=== PATIENT | female | born 1990 | race Caucasian/White ===

== ENCOUNTER 2017-03-29 12:51 | Emergency (ER) | payer SELFPAY ==
[2017-03-29 13:13] VITALS: BP 113/75
--- NOTE | 2017-03-29 13:14 | ED Physician Documentation ---
Sore Throat/Dental Pain - HPI Chief Complaint: Dental Pain Onset: hours (this AM) Context: Fractured Tooth Associated Symptoms: denies: fever, chills Worsened By: nothing Relieved By: nothing Further Comments: yes (Patient states that she has had some dental pain for one month, worse this AM. Patient has a dental ppointment this Friday. Patient states that she has been diagnosed with diabetes but has been told that she is no longer daibetic. Has not been checking her insulin. When advised that it appears that she has refilled insulin in January she denied that she is taking any insulin. Patient did know the names of Luca Reardon, Nickolas Gastelum, did not not know Kristin Burkett. Denies that she got any medications from any of them .) - ROS CONST: no problems. 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, ) Other History: none Immunizations: referred to PCP - SOCIAL HX Smoking History: non-smoker Alcohol Use: none Drug Use: none - FAMILY HX Family History: No - VITAL SIGNS Vital Signs: Vital Signs Temp Pulse Resp BP Pulse Ox 98.4 F 106 H 18 113/75 98 03/29/17 13:06 03/29/17 13:06 03/29/17 13:06 03/29/17 13:06 03/29/17 13:06 - REVIEWED ASSESSMENTS Nursing Assessment Reviewed: Yes Vitals Reviewed: Yes <Kian Kim - Last Filed: 03/29/17 14:38> - HISTORIAN Historian: patient - HPI Stated Complaint: dental pain - VITAL SIGNS Vital Signs: Vital Signs Temp Pulse Resp BP Pulse Ox 98.4 F 106 H 18 113/75 98 03/29/17 13:06 03/29/17 13:06 03/29/17 13:06 03/29/17 13:06 03/29/17 13:06 <Li Chavira - Last Filed: 03/29/17 15:05> - PAST HX Allergies/Adverse Reactions: Allergies Allergy/AdvReac Type Severity Reaction Status Date / Time codeine Allergy Verified 03/29/17 13:02 hydrocodone Allergy Verified 03/29/17 13:02 morphine Allergy Verified 03/29/17 13:02 Penicillins Allergy Verified 03/29/17 13:02 fentanyl AdvReac Rash Verified 03/29/17 13:02 Home Medications: Ambulatory Orders Medication Instructions Recorded Diazepam [Valium] 5 mg PO QID PRN 03/29/17 Ferrous Sulfate [Feosol] 325 mg PO BID 03/29/17 Quetiapine Fumarate [Seroquel] 100 mg PO HS 03/29/17 Progress - Progress Progress: Chem stick was done and was high. Patient advised that the dental issue is secondary to the blood sugar issue and that she might be developing some DKA and needed further evaluation. Patient states that she is aware of what DKA is and that she could really sick from it and from complications. Patient stated that she just wanted tretment for her tooth and refused to have any further diagnostic testing done. Patient wanted to leave AMA, pateint was again informed to risks and benefits of further testing but she refuse. Nurse tried to have patient get some further testing done but again refused. <Kian Kim - Last Filed: 03/29/17 14:38> ED Results Lab/Radiology - Orders Orders: ED Orders Category Date Time Status Chem Sticks Med 03/29/17 13:26 Discontinued 1 each MC NOW ONE <Kian Kim - Last Filed: 03/29/17 14:38> Dental Pain Physical Exam - EXAM General Appearance: alert, mild distress Mouth/Throat: lips nml, gums nml (tenderness to palpation to right lower gum, no swelling), pharynx nml, voice nml, widespread dental decay. No: gum swelling around teeth Ear/Nose: nml inspection Respiratory: no resp. distress, breath sounds nml, respiratory distress CVS: reg. rate & rhythm, heart sounds nml Abdomen: soft, no organomegaly, normal bowel sounds, no abdominal bruit Extremities: non-tender Skin: warm/dry, normal color Neuro/Psych: No: weakness <Kian Kim Last Filed: 03/29/17 14:38> Discharge Decision to Admit: NO Date of Decison to Admit: 03/29/17 Decision Time: 14:36 <Kian Kim Last Filed: 03/29/17 14:38> <Li Chavira - Last Filed: 03/29/17 15:05> Clincal Impression: Hyperglycemia, Infected dental carries Referrals: Primary Doctor,No [Primary Care Provider] - 2 Days Disposition: 07 AGAINST MEDICAL ADVICE
== END 2017-03-29 13:35 | disposition left against medical advice (07) ==
LOC: ED 12:51
DX: R73.9 Hyperglycemia, unspecified (principal); K02.9 Dental caries, unspecified; Z53.21 Procedure and treatment not carried out due to patient leaving prior to being seen by health care provider
CPT/HCPCS: 99283